=== PATIENT | female | born 1990 | race Two or more races ===

== ENCOUNTER 2024-06-10 12:22 | Emergency (ER) | payer MEDICAID ==
[~2024-06-10] VITALS: Ht 160 cm; Wt 128.0 kg
[2024-06-10] MEDS: SODIUM CHLORIDE 0.9% 500 ML IV ONE (13:17)
[2024-06-10 13:43] LABS: Basophils # (auto) 0.1 10 ^3/uL (0-0.2); Basophils % (auto) 0.7 % (0.0-2.0); Eosinophils # (auto) 0.1 10 ^3/uL (0-0.8); Eosinophils % (auto) 1.9 % (0.0-7.0); Hemoglobin 12.4 g/dL (12.2-16.2); Lymphocytes # (auto) 3.3 10 ^3/uL (0.4-5.4); Lymphocytes % (auto) 40.6 % (10.0-50.0); Mean Corpuscular Hemoglobin 29.2 pg (28.0-32.0); Mean Corpuscular Hgb Conc. 32.7 g/dL (32.0-36.0); Mean Corpuscular Volume 89.5 fL (80.0-100.0); Monocytes # (auto) 0.5 10 ^3/uL (0-1.3); Monocytes % (auto) 5.7 % (0.0-12.0); Neutrophils # (auto) 4.1 10 ^3/uL (1.6-8.6); Neutrophils % (auto) 51.1 % (37.0-80.0); Red Blood Cells 4.24 10^6/uL (4.0-5.20); Red Cell Distribution Width 14.3 % (11.8-14.3); White Blood Cell 8.1 10^3/uL (4.4-10.8)
[2024-06-10 14:00] LABS: INR 0.98 (0.9-1.15); Prothrombin Time 10.4 sec (9.3-11.8)
[2024-06-10 15:47] VITALS: BP 102/57; PULSE 62; RESP 17; TEMP 98.9; O2SAT 100
== END 2024-06-10 15:50 | disposition home or self-care (01) ==
LOC: ER 12:22
DX: O20.0 Threatened abortion (principal); R10.2 Pelvic and perineal pain; Z90.49 Acquired absence of other specified parts of digestive tract; Z3A.01 Less than 8 weeks gestation of pregnancy
CPT/HCPCS: 36415; 76801; 76817; 84702; 85025; 85610; 85730; 86850; 86900; 86901; 99284; J7040

== ENCOUNTER 2024-06-19 22:07 | Emergency (ER) | payer MEDICAID ==
[~2024-06-19] VITALS: Ht 172.7 cm; Wt 57.0 kg
[2024-06-19 22:07] VITALS: BP 97/57; RESP 20; O2SAT 97
[2024-06-19 22:12] VITALS: PULSE 73
[2024-06-19 22:37] LABS: Basophils # (auto) 0.1 10 ^3/uL (0-0.2); Eosinophils # (auto) 0.1 10 ^3/uL (0-0.8); Eosinophils % (auto) 1.4 % (0.0-7.0); Hematocrit 40.3 % (36.0-46.0); Hemoglobin 13.5 g/dL (12.2-16.2); Lymphocytes % (auto) 40.6 % (10.0-50.0); Mean Corpuscular Hemoglobin 29.8 pg (28.0-32.0); Mean Corpuscular Hgb Conc. 33.5 g/dL (32.0-36.0); Mean Corpuscular Volume 88.8 fL (80.0-100.0); Monocytes # (auto) 0.5 10 ^3/uL (0-1.3); Monocytes % (auto) 5.6 % (0.0-12.0); Neutrophils % (auto) 51.4 % (37.0-80.0); Nucleated Red Blood Cells % 0.1 %; Red Blood Cells 4.54 10^6/uL (4.0-5.20); Red Cell Distribution Width 14.3 % (11.8-14.3); White Blood Cell 9.7 10^3/uL (4.4-10.8)
[2024-06-19 22:41] LABS: Urine Bacteria None Seen /hpf (None Seen)
[2024-06-19 22:54] LABS: Urine Blood Negative /uL (Negative); Urine Clarity Clear (Clear); Urine Color Yellow (Yellow); Urine Mucus FEW (None Seen); Urine Protein, UAD TRACE (Negative); Urine Specific Gravity 1.028 (1.001-1.035); Urine Urobilinogen Normal (Negative); Urine WBC 4 /hpf (0 - 5); Urine pH 5.5 (5.0-9.0)
[2024-06-19 22:57] LABS: Alanine Aminotransferase 21 U/L (7-40); Albumin 4.4 g/dL (3.2-4.8); Alkaline Phosphatase 57 U/L (46-116); Anion Gap 6 (5-15); Aspartate Aminotransferase 12 U/L (13-40); BUN/Creatinine Ratio 8.5 (10.0-20.0); Bilirubin, Total 0.4 mg/dL (0.2-1.0); Blood Urea Nitrogen 7 mg/dL (9-23); Calcium 9.8 mg/dL (8.7-10.4); Carbon Dioxide 23 mmol/L (20-30); Chloride 109 mmol/L (98-107); Glucose 81 mg/dL (74-106); Potassium 3.8 mmol/L (3.5-5.1); Sodium 138 mmol/L (136-145)
[2024-06-19 22:58] LABS: Total Protein 7.4 g/dL (5.7-8.2)
== END 2024-06-20 04:20 | disposition left against medical advice (07) ==
LOC: ER 22:07
DX: R07.2 Precordial pain (principal); R10.2 Pelvic and perineal pain; Z53.21 Procedure and treatment not carried out due to patient leaving prior to being seen by health care provider
CPT/HCPCS: 36415; 80053; 81001; 83880; 84484; 84702; 85025; 93005

== ENCOUNTER 2024-09-26 22:55 | Observation (INO) | payer MEDICAID ==
[~2024-09-26] VITALS: Ht 170.2 cm; Wt 112.5 kg
[2024-09-27 00:12] LABS: Vaginal Bacteria Many; Vaginal Trichomonas Not Present
[2024-09-27 00:13] LABS: Vaginal Clue Cells Few; Vaginal Epithelial Cells Many
[2024-09-27 00:24] LABS: Urine Bacteria MANY /hpf (None Seen); Urine Blood Negative /uL (Negative); Urine Clarity Turbid (Clear); Urine Color Yellow (Yellow); Urine Mucus FEW (None Seen); Urine Protein, UAD TRACE (Negative); Urine Specific Gravity 1.031 (1.001-1.035); Urine Urobilinogen Normal (Negative); Urine WBC 16 /hpf (0 - 5)
[2024-09-27] MEDS ORDERED: PRENCAP11 PO (00:55)
[2024-09-27] MEDS ORDERED: ASPI-498 PO (00:55)
[2024-09-27] MEDS ORDERED: MET500T PO (00:55)
== END 2024-09-27 01:09 | disposition home or self-care (01) ==
LOC: LDRP 22:55
PROVIDERS: ADMIT Obstetrics & Gynecology; ATTEND Obstetrics & Gynecology
DX: O23.592 Infection of other part of genital tract in pregnancy, second trimester (principal); R10.2 Pelvic and perineal pain; O62.9 Abnormality of forces of labor, unspecified; Z3A.21 21 weeks gestation of pregnancy; Z79.899 Other long term (current) drug therapy; Z98.890 Other specified postprocedural states
CPT/HCPCS: 76815; 81001; 81002; 87210; G0378

== ENCOUNTER 2024-12-12 06:50 | Observation (INO) | payer MEDICAID ==
[~2024-12-12] VITALS: Ht 170.2 cm; Wt 127.0 kg
[~2024-12-12 06:50] MED LIST: ASPI-498 PO; MET500T PO; PRENCAP11 PO
--- NOTE | 2024-12-12 13:35 | DVHDS2 ---
Physician Discharge Progress N Final Diagnosis: stuck condom in vagina Operations or Procedures: Operations or Procedures nst Condition on Discharge: Good Disposition: Home Discharge Instructions: Diet: Regular Activity: Light activity Medications: na Follow Up Care: Specialist: 1w Discharge Statement: "Patient was advised to return to the ER or call 911 if any headaches, d izziness, shortness of breath, chest pain, abdominal pain, bleeding, fevers, or worsening of medical condition. Patient was counseled about treatment plan, medications, possible side effects, patientverbalized understanding. All questions were answered to the best of my ability. This discharge took greater then 30 minutes in planning, reviewing documentation, counseling the patient, and discussing with other team members." VIC ADEN DO Dec 12, 2024 13:35
== END 2024-12-12 07:41 | disposition home or self-care (01) ==
LOC: LDRP 06:50
PROVIDERS: ADMIT Obstetrics & Gynecology; ATTEND Obstetrics & Gynecology
DX: O26.893 Other specified pregnancy related conditions, third trimester (principal); T19.2XXA Foreign body in vulva and vagina, initial encounter; Y92.89 Other specified places as the place of occurrence of the external cause; Z3A.32 32 weeks gestation of pregnancy; Z79.899 Other long term (current) drug therapy; Z98.890 Other specified postprocedural states
CPT/HCPCS: 59025; 81002; 94760; G0378

== ENCOUNTER 2025-01-05 01:29 | Observation (INO) | payer MEDICAID ==
[~2025-01-05] VITALS: Ht 170.2 cm; Wt 131.5 kg
[2025-01-05] MEDS: TERBUTALINE SULFATE 1 MG/ML 1ML VIAL SC ONE (02:50)
--- NOTE | 2025-01-05 09:29 | DVHDS2 ---
Physician Discharge Progress N Final Diagnosis: IUP 35.5 wk, cramping Secondary Diagnosis: Threatened labor Operations or Procedures: Operations or Procedures NST Terbutaline injection x 1 Commentary: Commentary cervix closed, UC's resolved NOT in labor status reassuring Condition on Discharge: Stable Disposition: Home Discharge Instructions: Diet: Regular Activity: No Restrictions, As Tolerated Follow Up/Referral: PRN Medications: N/A Follow Up Care: Discharge Statement: "Patient was advised to return to the ER or call 911 if any headaches, dizziness, shortness of breath, chest pain, abdominal pain, bleeding, fevers, or worsening of medical condition. Patient was counseled about treatment plan, medications, possible side effects, patientverbalized understanding. All questions were answered to the best of my ability. This discharge took greater then 30 minutes in planning, reviewing documentation, counseling the patient, and discussing with other team members." Visit Coding OBGYN Date of Service: Jan 05, 2025 Billing Provider: JONO PYLE DO [employer] EVENTS DRIVER Common Visit Codes: 09364-IRH/OBS SAME DATE (MOD) [employer] EVENTS DRIVER Procedure Codes: 60441-22- NON-STRESS TEST JONO PYLE DO Jan 05, 2025 09:29
== END 2025-01-05 04:20 | disposition home or self-care (01) ==
LOC: LDRP 01:29 → UNDODISOB 08:42
PROVIDERS: ADMIT Obstetrics & Gynecology; ATTEND Obstetrics & Gynecology
DX: O47.03 False labor before 37 completed weeks of gestation, third trimester (principal); Z98.890 Other specified postprocedural states; Z79.899 Other long term (current) drug therapy; Z3A.35 35 weeks gestation of pregnancy
CPT/HCPCS: 59025; 81002; 94760; 96372; G0378; J3105